=== PATIENT | male | born 1985 | race Caucasian/White ===

== ENCOUNTER 2017-12-03 11:28 | Emergency (ER) | payer SELFPAY ==
--- NOTE | 2017-12-03 12:12 | RAD ---
THREE VIEWS RIGHT ANKLE: 12/03/2017 HISTORY: Trauma. Injury. Pain. COMPARISON: None. FINDINGS: The talar dome and ankle mortise are intact. There is no displaced fracture or evidence of dislocati on seen. IMPRESSION: No acute fracture or dislocation. POS: [facility]
[2017-12-03] MEDS ORDERED: Ibuprofen 800 MG TAB ONE (12:59)
--- NOTE | 2017-12-03 13:23 | RAD ---
THREE VIEWS RIGHT FOOT: HISTORY: Injured right foot at [facility]. COMPARISON: None. FINDINGS: Lisfranc alignment is maintained. Joint spaces are preserved. No fracture. Evaluation of the secon d through fifth digits is limited by flexion. IMPRESSION: Limited evaluation of the digits due to flexion. No fracture. If there is pain in the second throug h fifth digits, dedicated imaging of the toes can be performed. POS: [facility]
== END 2017-12-03 13:06 | disposition home or self-care (01) ==
LOC: ERS 11:28
DX: S93.601A Unspecified sprain of right foot, initial encounter (principal); F17.210 Nicotine dependence, cigarettes, uncomplicated; X50.1XXA Overexertion from prolonged static or awkward postures, initial encounter; Y93.44 Activity, trampolining

== ENCOUNTER 2017-12-15 16:48 | Emergency (ER) | payer SELFPAY ==
[2017-12-15] MEDS ORDERED: Rabies Vaccine Human 2.5 UNITS VIAL IM ONE (19:00)
[2017-12-15] MEDS ORDERED: Rabies Immune Globulin 1500 UNITS/10 ML VIAL IM SCH (19:00)
[2017-12-15] MEDS ORDERED: Ketorolac Tromethamine 30 MG/ML VIAL ONE (19:41)
[2017-12-15] MEDS ORDERED: Amoxicillin/Potassium Clav 875 MG TAB ONE (19:41)
[2017-12-15] MEDS ORDERED: Bacitracin Zinc 1 Packet ONE (19:44)
== END 2017-12-15 21:32 | disposition home or self-care (01) ==
LOC: ERS 16:48
DX: S51.851A Open bite of right forearm, initial encounter (principal); F17.210 Nicotine dependence, cigarettes, uncomplicated; W54.0XXA Bitten by dog, initial encounter
CPT/HCPCS: 90375; 90471; 90675; 96372; J1885